=== PATIENT | female | born 1965 | race Caucasian/White ===

== ENCOUNTER 2019-01-05 07:25 | Day surgery (SDC) | payer OTHER ==
[~2019-01-05] VITALS: Ht 167.6 cm; Wt 112.3 kg
[2019-01-05] MEDS ORDERED: 0.9% SODIUM CHLORIDE 10 ML SYRINGE IVP PRN (08:00)
[2019-01-05] MEDS ORDERED: METOPROLOL TARTRATE 50 MG TABLET PO PRN (08:00)
[2019-01-05] MEDS ORDERED: METOPROLOL TARTRATE 5 MG/5 ML VIAL ONE (08:44)
[2019-01-05] MEDS ORDERED: NITROGLYCERIN 400 MCG/SUBLINGUAL SPRAY 4.9 GM BOTTLE SL ONE ×2 (08:44→11:15)
[2019-01-05 08:59] LABS: ANION GAP 8 mmol/L (8-16); CALCIUM, TOTAL 8.9 mg/dL (8.8-10.5); CARBON DIOXIDE 30 mmol/L (22-29); CHLORIDE 104 mmol/L (98-107); CREATININE 0.72 mg/dL (0.60-1.30); GLOMERULAR FILTR. RATE CALC > 60 mL/min (>60); GLUCOSE,RANDOM 96 mg/dL (70-110); POTASSIUM 3.8 mmol/L (3.5-5.1); SODIUM SERUM 142 mmol/L (136-145); UREA NITROGEN, BLOOD 8 mg/dL (7-18)
[2019-01-05] MEDS ORDERED: IOVERSOL 350 MG/ML 150 ML VIAL ONE (09:00)
[2019-01-05] MEDS ORDERED: SODIUM CHLORIDE 0.9% 100 ML ONE (09:00)
[2019-01-05] MEDS ORDERED: CHOL100018 PO (09:18)
[2019-01-05] MEDS ORDERED: METO-558 PO (09:18)
[2019-01-05] MEDS ORDERED: FERR-89 PO (09:18)
[2019-01-05] MEDS ORDERED: ASPI-1182 PO (09:18)
== END 2019-01-05 10:45 | disposition home or self-care (01) ==
LOC: SURGERY 07:25 → EDSTATUS 09:00 → SURGERY 10:45
PROVIDERS: ATTEND Internal Medicine Cardiovascular Disease
DX: R07.9 Chest pain, unspecified (principal); M51.34 Other intervertebral disc degeneration, thoracic region; Z88.0 Allergy status to penicillin; Z88.5 Allergy status to narcotic agent
CPT/HCPCS: 36415; 75574; 80048; 93005; J7050; Q9967; J3490